=== PATIENT | female | born 2005 | race Two or more races ===

== ENCOUNTER 2025-06-18 15:46 | Emergency (ER) | payer OTHER ==
[~2025-06-18] VITALS: Ht 162.6 cm; Wt 66.5 kg
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
[2025-06-18] MEDS ORDERED: DICL50TA2 PO (18:00)
[2025-06-18 18:35] VITALS: BP 110/54; PULSE 78; TEMP 98.2
[2025-06-18 18:36] VITALS: RESP 16; O2SAT 98
== END 2025-06-18 18:38 | disposition home or self-care (01) ==
LOC: ER 15:46
DX: S30.0XXA Contusion of lower back and pelvis, initial encounter (principal); M61.461 Other calcification of muscle, right lower leg; M25.512 Pain in left shoulder; V89.2XXA Person injured in unspecified motor-vehicle accident, traffic, initial encounter; Y93.89 Activity, other specified; Y92.410 Unspecified street and highway as the place of occurrence of the external cause; Y99.8 Other external cause status
CPT/HCPCS: 72040; 72100; 73030